=== PATIENT | male | born 1970 | race Caucasian/White ===

== ENCOUNTER 2018-05-30 10:30 | Inpatient (IN) ==
[2018-05-30] MEDS ORDERED: CeFAZolin Syr 2,000MG/20 ML 2,000 MG/20 ML SYRINGE IVPB ONE (10:50)
[2018-05-30] MEDS ORDERED: Ringers Solution, Lactated 1,000 ML IVC SCH (11:00)
--- NOTE | 2018-05-30 11:06 | Anesthesia Evaluation PreOp ---
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)) Other Medical History: GERD Anesthesia History: No Prior Anesthetic Complications, Past Anesthesia (julito, lumpectomy) Alcohol Use: rarely Drug use: none Medications and Allergies Cholecalciferol (Vitamin D3) [Vitamin D3] 10,000 unit PO DAILY 05/30/18 [History ] Metoprolol Succinate 100 mg PO DAILY 05/30/18 [History] Omeprazole [PriLOSEC] 40 mg PO DAILY 05/30/18 [History] hydroCHLOROthiazide [Hydrochlorothiazide] 25 mg PO DAILY 05/30/18 [History] 3 Allergy/AdvReac Type Severity Reaction Status Date / Time promethazine [From Phenergan] AdvReac "heart Verified 05/30/18 11:52 issues" - Meds/Allergy Pre-op Review Medications Reviewed: Yes Allergies Reviewed: Yes Beta Blockers on Current Med List: Yes (metoprolol) If Beta Blockers taken, Date/Time (Last Dose taken): 0700 Anesthesia Results - Labs Laboratory Tests 05/25/18 05/25/18 08:35 08:35 WBC 5.3 Hgb 16.5 Hct 46.4 Plt Count 284 Sodium 135 L Potassium 3.9 Chloride 103 Carbon Dioxide 24 BUN 14 Creatinine 1.10 Est GFR (Non-Af Amer) > 60 - Imaging EKG: report reviewed, image reviewed Anesthesia Exam Vital Signs/O2 Sat/Glucose, Most Recent Temp Pulse Resp BP Pulse Ox 98.9 F 101 18 131/80 93 05/30/18 11:03 05/30/18 11:03 05/30/18 11:03 05/30/18 11:03 05/30/18 11:03 Height: 1.7 m Weight: 95 kg NPO (# of Hours): > 8 hr - HEENT Pupil (Motor): Pupils equal Mallampati: II Teeth: Normal Oral Opening: Greater than 3 - CUSTOMS INSPECTOR LOC: Oriented CUSTOMS INSPECTOR Motor: Normal RUE, Normal LUE, Normal RLE, Normal LLE, Normal Face CUSTOMS INSPECTOR Sensory: Normal: RUE, LUE, RLE, LLE, Face - Cardiac Rhythm: Regular Murmur: None - Pulmonary Breath Sounds: bilateral Clear Respiratory Effort: Symmetrical Anesthesia Assess/Plan ASA Score: 3 Modified Mccloud Scale for Level of Consciousness: Cooperative, oriented, and tranquil Anesthetic Plan: General, Regional (possible TAP block) Monitoring Plan: Standard Monitors Recovery Plan: PACU
[2018-05-30] MEDS ORDERED: Famotidine 20 MG/2 ML VIAL IVP ONE (11:19)
[2018-05-30] MEDS ORDERED: Acetaminophen IV 1,000 MG/100 ML INFUS..BTL IVPB ONE (11:19)
[2018-05-30] MEDS ORDERED: *HR* Propofol 200 MG/20 ML VIAL IVP ONE (11:45)
[2018-05-30] MEDS ORDERED: Lidocaine -MPF 2% 2 ML VIAL ONE (11:45)
[2018-05-30] MEDS ORDERED: *HR* Midazolam HCl 2 MG/2 ML VIAL ONE (11:54)
[2018-05-30] MEDS ORDERED: *HR* FentaNYL (PF) 100 MCG/2 ML VIAL ONE ×2 (11:54→15:34)
[2018-05-30] MEDS ORDERED: Bupivacaine-MPF 0.25% 10 ML VIAL ONE (12:03)
--- NOTE | 2018-05-30 12:09 | History & Physical Report ---
Date of Encounter: 05/30/18 Time of Encounter: 12:08 24 Hour HP Update - Instructions Instructions: If the History and Physical is less than 30 days old and was completed prior to A.M. admission and or procedure and has NOT been updated on calendar day of procedure please complete this update prior to performing procedure. - Update Patient reports changes in Medical Condition: No Changes in examination, assessment, or condition: No Changes in Medication: No Preop tests/diagnostics Reviewed: Yes Surgery Remains Indicated: Yes Consent for Planned Operative Procedure(s) Verified: Yes - Pre-Operative Checklist Preoperative Checklist Indicated: Yes Prophylactic Antibiotic Ordered: Yes Home Medications Include Beta Mino: No Is VTE Prophylaxis Indicated?: Yes
[2018-05-30] MEDS ORDERED: *HR* Vasopressin 20 UNIT/ML VIAL ONE (12:12)
[2018-05-30] MEDS ORDERED: Albumin Human 5% 25.0 GM/500 ML VIAL ONE (12:13)
[2018-05-30] MEDS ORDERED: Mannitol 25% vial 12.5 GM/50 ML VIAL ONE ×2 (13:24→13:26)
[2018-05-30] MEDS ORDERED: *HR* PHENYLEPHRINE 1,000 MCG/10 ML SYRINGE IVP ONE (13:28)
[2018-05-30] MEDS ORDERED: EPHEDrine 50 MG/ML VIAL ONE (13:28)
[2018-05-30] MEDS ORDERED: *HR* Rocuronium Bromide 50 MG/5 ML VIAL ONE ×2 (13:30→16:07)
[2018-05-30] MEDS ORDERED: Ondansetron 4 MG/2 ML VIAL ONE (13:30)
[2018-05-30] MEDS ORDERED: Dexamethasone 4 MG/ML VIAL ONE (13:30)
[2018-05-30] MEDS ORDERED: *HR* HYDROmorphone 2 MG/ML SYRINGE ONE (15:32)
[2018-05-30] MEDS ORDERED: Ondansetron 4 MG/2 ML VIAL IVP ONE (16:51)
[2018-05-30] MEDS ORDERED: *HR* OxyCODONE Immed Rel 5 MG TABLET PO PRN (16:51)
[2018-05-30] MEDS ORDERED: *HR* HYDROmorphone (PF) 1 MG/ML SYRINGE IVP PRN (16:51)
[2018-05-30] MEDS ORDERED: Neostigmine Methylsulfate 3 MG/3 ML SYRINGE ONE (16:55)
--- NOTE | 2018-05-30 17:32 | Operative Note ---
Date of procedure: 05/30/18 Pre-op diagnosis: Left renal mass Post-op diagnosis: same Procedure: Left robotic-assisted laparoscopic partial nephrectomy Implants: 19-Yi Bulmaro drain Winter catheter Complications: None Anesthesia: JASPERA Surgeon: Dann Tinsley Was there an assistant program manager present: Yes Rn Hospice: [facility] Rn Hospice Other: Beulah Dailey Estimated blood loss (cc): 350 Specimen: left kidney tumor Condition: stable Disposition: PACU Procedure in Detail: Indications: Jhony is a 47-year-old man who presents with a left renal mass. He elected to undergo a left robotic partial nephrectomy. He was informed of the risks of the procedure which include but are not limited to bleeding, infection, injury to other structures, need for further procedures, urine leak, bowel injury, need for complete nephrectomy, need for open conversion, and the risk of anesthesia. He is willing to proceed. Procedure After informed consent was obtained the patient was brought back to the operating room and placed in the supine position. A timeout was performed. Gen. anesthesia was then administered and an endotracheal tube was placed. Appropriate IV access and arterial lines were obtained. A Winter catheter was then placed. He was then placed in the flank position. His right side was up. All pressure points were padded. He was well secured to the table. He was then prepped and draped in the usual sterile fashion. We then marked out our incisions. The incisions were located along the lateral rectus border x 4. The assistant program manager port was located infraumbilically. A 5 mm incision was then made lateral and inferior to the umbilicus. The Veress needle was introduced. 2 clicks were heard. It passed the water drop test. Insufflation was then initiated. Pressures were low consecutively. The abdomen was insufflated. Once the pressure was up to 15, we inserted the 5 mm laparoscopic port with the visual obturator. Entry was obtained into the abdomen. The bowel was surveyed below and there is no evidence of bowel injury. He previously had a laparoscopic Elieser fundoplication. Lysis of adhesions was performed sharply. Robotic ports were then inserted x 3. The 5 mm port was exchanged for a robotic port. A 12 mm port was placed for the assistant program manager inferior to the umbilicus. The robot was docked. The bowel was reflected off the kidney along the white line of Toldt. The Gerota's fascia was identified. Pulsation was identified through the Gerota's fascia and the Gerota's fascia was entered. I identified the left gonadal vein and this was tracked to the level of the renal vein. The renal vein was dissected out. Posterior to the renal vein identified the renal artery and this was gently dissected out too. Once the artery was freed up attention was then turned to mobilize the kidney to get posterior access. The kidney was dissected off the lateral abdominal wall along Gerota's fascia. I entered Gerota's and identify the kidney superiorly and posteriorly. The splenic attachments were dissected down sharply. There was a little bit of bleeding underneath the spleen but there did not appear to be any significant injury to any vascular structure to the spleen. The kidney was retracted inferiorly using the fourth arm. Eventually was able to dissect the medial aspect of the kidney along posterior. The mass was then identified. The ultrasound was then obtained. I identified the circumference of the tumor and ascertained the depth at which it went. The area of incision through the capsule was identified. This was scored with electrocautery. Mannitol was then given. The renal artery was clamped using the bulldog. The tumor was excised sharply using cold scissors. Vascular control was not very good and there was a fair amount of backbleeding. Once the tumor was removed I utilized a 3-O V-LOC x 2 to close the deeper vessels in a running fashion. Hemostasis was adequate. I then closed the capsule to itself using 0 V loc suture in an interrupted fashion with the sliding clip renorrhaphy technique. Hemostasis was good. The bulldog clamp was removed. 26 minutes of warm ischemia time was noted. Once the bulldog clamp was removed and FloSeal was applied to the resection area. Hemostasis seemed adequate. The Gerota's fascia was closed back over top of the kidney using an 0 Vicryl suture. The kidney was then pexed to the lateral abdominal wall using the 0 Vicryl suture. The specimen was removed in a specimen bag. The specimen was extracted through the assistance port. A 19 Yi Bulmaro drain was then placed through the most inferior robotic port. All the ports were then removed. The fascia of the extraction site was closed in an interrupted fashion using an 0 Vicryl suture. The wounds were closed using 4-0 Monocryl suture. The drain was secured to the skin using a Nylon suture. Local anesthetic was infiltrated into the wounds. The abdomen was then washed and dried and Dermabond was applied to the wounds. The patient was then awakened from general anesthesia and brought to recovery room in good condition. All sponge, needle, and instrument counts were correct.
--- NOTE | 2018-05-30 17:56 | Anesthesia Evaluation Post Op ---
Date of Encounter: 05/30/18 Time of Encounter: 18:00 - Vital Signs Vital Signs: Vital Signs/O2 Sat/Glucose, Most Current Temp Pulse Resp BP Pulse Ox 05/30/18 17:49 98.3 F 75 16 115/74 94 05/30/18 17:39 98.1 F 81 16 108/72 95 05/30/18 17:29 87.7 F L 81 16 123/77 100 - Lungs Lungs: Clear Ascult./Percussion - Airway Airway: Non-obstructed - Cardiovascular Regular Rate - Mental Status Mental Status: Alert & Oriented, Answers Appropriately - Pain Pain Scale: 0 - Nausea Vomiting Nausea Vomiting: Not Present - Hydration Hydration: Ice chips - Discharge PostOp Status: Transfer Patient to floor
[2018-05-30] MEDS ORDERED: OXYCODONE Oral CONC 10 MG/0.5 ML ORAL.SYG SL PRN (18:27)
[2018-05-30] MEDS ORDERED: Naloxone 0.4 MG/ML INJ IVP PRN (18:27)
[2018-05-30] MEDS ORDERED: Acetaminophen 325 MG TABLET PO PRN (18:27)
[2018-05-30] MEDS ORDERED: Ondansetron 4 MG/2 ML VIAL IVP PRN (18:27)
[2018-05-30] MEDS: *HR* OxyCODONE Immed Rel 5 MG TABLET PO PRN (21:51)
[2018-05-30] MEDS: 0.9 % Sodium Chloride 1,000 ML IVC SCH (21:51)
[2018-05-31] MEDS: *HR* OxyCODONE Immed Rel 5 MG TABLET PO PRN ×3 (03:30→20:57)
[2018-05-31 05:15] LABS: Basophils % 0.1 %; Hematocrit 39.2 % (37.5-50.1); Immature Granulocytes % 0.4 % (0-4); Lymphocytes # 0.9 K/mcL (0.6-4.6); Lymphocytes % 9.1 %; Mean Corpuscular HGB Conc 34.7 g/dL (31.6-35.5); Mean Corpuscular Hemoglobin 29.6 pg (28.0-33.3); Mean Corpuscular Volume 85.4 fL (83.0-100.0); Mean Platelet Volume 8.9 fL (9.4-12.4); Monocytes # 0.6 K/mcL (0.0-1.3); Neutrophils # 8.7 K/mcL (1.6-8.9); Platelet Count 241 K/mcL (140-400); Red Blood Count 4.59 M/mcL (4.19-5.50); Red Cell Distribution Width 13.2 % (11.5-14.5); Segmented Neutrophils % 84.4 %
[2018-05-31 05:16] LABS: Hemoglobin 13.6 g/dL (12.9-16.9)
[2018-05-31 05:32] LABS: BUN/Creatinine Ratio 10 (6-26); Blood Urea Nitrogen 14 mg/dL (6-20); Calcium 9.3 mg/dL (8.6-10.3); Carbon Dioxide 29 mEq/L (23-29); Chloride 97 mEq/L (98-107); Glucose 146 mg/dL (70-105); Osmolality,Calculated 281 (280-300); Potassium 4.6 mEq/L (3.5-5.1); Sodium 134 mEq/L (136-145); eGFR For Non-African Americans 54 (> 60)
[2018-05-31] MEDS: Metoprolol XL (24 HR) Succ 50 MG TAB.ER.24H PO SCH (08:09)
--- NOTE | 2018-05-31 08:32 | Urology Progress Note ---
Date of Encounter: 05/31/18 Time of Encounter: 07:50 - Assessment and Plan (1) Left renal mass Current Visit: Yes Status: Acute Assessment and plan: Patient is a 47-year-old male who is one day status post robotic left partial nephrectomy. Patient is feeling well with stable vital signs and is afebrile. Discussed plan to advance diet and increase ambulation as tolerated. Progress Note Subjective: no new complaints Narrative: POD #1. Patient seen and examined sitting upright in bed in no apparent distress. Patient is tolerating full liquids. Patient states pain is well- controlled. Patient has not passed flatus yet. Patient denies discomfort or feeling of obstruction with catheter. Patient denies significant pain, chest pain, dyspnea, calf pain. Objective Initial Vital Signs Temp Pulse Resp BP Pulse Ox 98.9 F 101 18 131/80 93 05/30/18 10:44 05/30/18 10:44 05/30/18 10:44 05/30/18 10:44 05/30/18 10:44 - General physical appearance Present: well developed, well nourished, no distress, no pain - Respiratory Present: normal expansion, normal respiratory effort - Abdomen Present: soft, non tender, wound (primary incisions clean, dry, intact; drain secured and draining ~10cc bloody serosanguinous fluid ). Absent: distended - Integumentary Present: no rash, no abnormal pigmentation - Musculoskeletal Present: normal posture - Psychiatric Present: oriented to time, oriented to person, oriented to place, speech is normal, memory intact - Labs 05/31/18 04:46 05/31/18 04:46 Diabetes panel 05/31/18 Range/Units 04:46 Sodium 134 L (136-145) mEq/L Potassium 4.6 (3.5-5.1) mEq/L Chloride 97 L (98-107) mEq/L Carbon Dioxide 29 (23-29) mEq/L BUN 14 (6-20) mg/dL Creatinine 1.42 H (0.70-1.30) mg/dL Glucose 146 H (70-105) mg/dL Calcium 9.3 (8.6-10.3) mg/dL Calcium panel 05/31/18 Range/Units 04:46 Calcium 9.3 (8.6-10.3) mg/dL Pituitary panel 05/31/18 Range/Units 04:46 Sodium 134 L (136-145) mEq/L Potassium 4.6 (3.5-5.1) mEq/L Chloride 97 L (98-107) mEq/L Carbon Dioxide 29 (23-29) mEq/L BUN 14 (6-20) mg/dL Creatinine 1.42 H (0.70-1.30) mg/dL Glucose 146 H (70-105) mg/dL Calcium 9.3 (8.6-10.3) mg/dL Adrenal panel 05/31/18 Range/Units 04:46 Sodium 134 L (136-145) mEq/L Potassium 4.6 (3.5-5.1) mEq/L Chloride 97 L (98-107) mEq/L Carbon Dioxide 29 (23-29) mEq/L BUN 14 (6-20) mg/dL Creatinine 1.42 H (0.70-1.30) mg/dL Glucose 146 H (70-105) mg/dL Calcium 9.3 (8.6-10.3) mg/dL Consult Discharge Plan - Plan [facility]errals: [facility] [Primary Care Provider] -
[2018-05-31] MEDS: 0.9 % Sodium Chloride 1,000 ML IVC SCH (15:59)
--- NOTE | 2018-06-01 09:02 | Discharge Summary ---
Orders not resulted at time of discharge: Pending orders 05/25/18 08:35 Red Blood Cells [BBK] Routine 05/30/18 17:08 Surgical Pathology [PTH] Routine Date of Encounter: 06/01/18 Time of Encounter: 09:03 - Discharge Diagnosis (1) Left renal mass Priority: Primary Status: Acute - Hospital Course Hospital course: Mr. Mays is a 47 year old male who presents with a left renal mass. On , the patient was taken to the operating room where he underwent a l left robotic-assisted laparoscopic partial nephrectomy. There were no operative complications, and the patient tolerated the procedure well. His postoperative course was relatively unremarkable, and he was dismissed in satisfactory condition. On postoperative day 2, urinary catheter and 19-Persian Bulmaro drain were successfully removed. Postoperative restrictions, activities and follow-up were discussed with patient. Time spent discussing smoking cessation with patient: 3 to 10 minutes - Time Spent with Patient Total time spent providing and/or coordinating discharge services: Less than 30 minutes Procedures and tests throughout hospitalization: Left robotic-assisted laparoscopic partial nephrectomy - Discharge Medications Prescriptions: Oxycodone HCl/Acetaminophen [Percocet 5-325 mg Tablet] 1 each PO Q4-6H PRN 4 Days #16 tablet PRN Reason: Moderate Pain Home Medications: Cholecalciferol (Vitamin D3) [Vitamin D3] 10,000 unit PO DAILY 05/30/18 [History ] Metoprolol Succinate 100 mg PO DAILY 05/30/18 [History] Omeprazole [PriLOSEC] 40 mg PO DAILY 05/30/18 [History] hydroCHLOROthiazide [Hydrochlorothiazide] 25 mg PO DAILY 05/30/18 [History] Oxycodone HCl/Acetaminophen [Percocet 5-325 mg Tablet] 1 each PO Q4-6H PRN 4 Days #16 tablet 06/01/18 [Rx] Allergies/Adverse Reactions: 3 Allergy/AdvReac Type Severity Reaction Status Date / Time promethazine [From Phenergan] AdvReac "heart Verified 05/30/18 11:52 issues" Date of admission: 05/30/18 18:25 [facility] care physician: [facility] Consults: 05/31/18 08:10 Consult to Physical Therapy [CONS] Routine Comment: Evaluate, develop and implement POC Reason for Consult: Assist with ambulation Does patient have active BEDREST order?: No Is patient medically & hemodynamically stable?: Yes Patient assessed for mobility or mobilized this visit?: No Discharging clinician: Beulah Dailey Anticipated date of discharge: 06/01/18 Exam Initial Vital Signs Temp Pulse Resp BP Pulse Ox 98.9 F 101 18 131/80 93 05/30/18 10:44 05/30/18 10:44 05/30/18 10:44 05/30/18 10:44 05/30/18 10:44 - General physical appearance Present: well developed, no distress, no pain - Eyes Present: PERRL, normal ocular movement - ENT Present: normal nares, no hearing loss, no congestion - Neck Present: no masses, trachea midline - Respiratory Present: normal respiratory effort - Cardiovascular Cardiovascular exam IM: RRR - Abdomen Abdomen: Present: soft, non tender, wound (clean, dry, intact ). Absent: distended - Integumentary Present: no rash, no abnormal pigmentation - Neurologic Present: normal coordination - Patient Status Disposition: Home, Self-Care Condition: Good Functional capacity at discharge: independent ambulation Overall status at discharge: patient is progressing back to baseline - Discharge Instructions Follow Up With: [facility] [Primary Care Provider] - Dann Tinsley MD [Partnered Physician] - Additional Instructions: Okay to shower. Okay to drive as long as you are no longer taking narcotic pain medicine. Call if fever greater than 101.5 degrees. No lifting greater than 20 pounds. No heavy activity. Please call urology office to make postoperative appointment. - Diet and Activity Activity: increase activity as tolerated Diet: advance to your usual diet
[2018-06-01] MEDS: Metoprolol XL (24 HR) Succ 50 MG TAB.ER.24H PO SCH (09:27)
[2018-06-01] MEDS: *HR* OxyCODONE Immed Rel 5 MG TABLET PO PRN (13:31)
[2018-06-01] MEDS ORDERED: Bisacodyl 10 MG RECTAL SUPPOSITORY RC ONE (15:51)
[2018-06-02 06:36] VITALS: BP 134/81
--- NOTE | 2018-06-02 07:28 | Urology Progress Note ---
Date of Encounter: 06/01/18 Time of Encounter: 07:26 - Assessment and Plan (1) Left renal mass Current Visit: Yes Status: Acute Assessment and plan: 47-year-old man status post left robotic-assisted partial nephrectomy. Postoperative day #2. Advance diet as tolerated. Anticipate DC home once bowel function has returned. Progress Note Narrative: Pain is adequately controlled today. He is tolerating clear liquids. He feels a little bloated. He has not passed much gas. Objective Initial Vital Signs Temp Pulse Resp BP Pulse Ox 98.9 F 101 18 131/80 93 05/30/18 10:44 05/30/18 10:44 05/30/18 10:44 05/30/18 10:44 05/30/18 10:44 - General physical appearance Present: well developed, well nourished, no distress - Respiratory Present: normal expansion - Abdomen Present: soft (Incisions are clean, dry, and intact. JEF with serosanguineous drainage. JEF was removed today.) - Labs 05/31/18 04:46 05/31/18 04:46 Consult Discharge Plan - Plan Additional Instructions: Okay to shower. Okay to drive as long as you are no longer taking narcotic pain medicine. Call if fever greater than 101.5 degrees. No lifting greater than 20 pounds. No heavy activity. Please call urology office to make postoperative appointment. Referrals: Dann Tinsley MD [Partnered Physician] - (Office will call with date and time of appointment. Thank you) Prescriptions: Oxycodone HCl/Acetaminophen [Percocet 5-325 mg Tablet] 1 each PO Q4-6H PRN 4 Days #16 tablet PRN Reason: Moderate Pain
--- NOTE | 2018-06-02 07:30 | Urology Progress Note ---
Date of Encounter: 06/02/18 Time of Encounter: 07:28 - Assessment and Plan (1) Left renal mass Current Visit: Yes Status: Acute Assessment and plan: Postop day #3 status post left robotic partial nephrectomy. Doing well today. Anticipate d/c home today. Progress Note Narrative: Postop day #3 status post left robotic-assisted partial nephrectomy. Doing well. He received a Dulcolax suppository yesterday which improved bowel function. He is tolerating general diet now. He wishes to go home. Objective Initial Vital Signs Temp Pulse Resp BP Pulse Ox 98.9 F 101 18 131/80 93 05/30/18 10:44 05/30/18 10:44 05/30/18 10:44 05/30/18 10:44 05/30/18 10:44 - General physical appearance Present: well developed, well nourished, no distress - Abdomen Present: soft (Appropriately tender. Not distended. Incisions are clean, dry, and intact.) - Labs 05/31/18 04:46 05/31/18 04:46 Consult Discharge Plan - Plan Additional Instructions: Okay to shower. Okay to drive as long as you are no longer taking narcotic pain medicine. Call if fever greater than 101.5 degrees. No lifting greater than 20 pounds. No heavy activity. Please call urology office to make postoperative appointment. Referrals: Dann Tinsley MD [Partnered Physician] - (Office will call with date and time of appointment. Thank you) Prescriptions: Oxycodone HCl/Acetaminophen [Percocet 5-325 mg Tablet] 1 each PO Q4-6H PRN 4 Days #16 tablet PRN Reason: Moderate Pain
[2018-06-02] MEDS: Metoprolol XL (24 HR) Succ 50 MG TAB.ER.24H PO SCH (08:17)
== END 2018-06-02 10:45 | disposition home or self-care (01) | DRG 661 ==
LOC: SAMDAY 10:30 → 3ANU 18:25
PROVIDERS: ADMIT Urology; ATTEND Urology